=== PATIENT | female | born 1985 | race Caucasian/White ===

== ENCOUNTER 2024-02-29 16:11 | Outpatient (REF) | payer OTHER, SELFPAY | END 2024-02-29 16:12 | disposition home or self-care (01) | LOC: LBN 16:11 | PROVIDERS: PCP Nurse Practitioner Family; Visit Provider Obstetrics & Gynecology | DX: N89.8 Other specified noninflammatory disorders of vagina (principal) | CPT/HCPCS: 87480; 87510; 87660 ==

== ENCOUNTER 2024-06-10 00:34 | Outpatient (CLI) | payer OTHER, SELFPAY ==
[2024-06-10 16:52] LABS: HCT 43.9 % (36.0-46.0); HGB 14.7 g/dL (11.2-15.7)
== END 2024-06-10 00:35 | disposition home or self-care (01) ==
LOC: LBO 00:34
PROVIDERS: PCP Nurse Practitioner Family; Visit Provider Obstetrics & Gynecology
DX: Z01.818 Encounter for other preprocedural examination (principal)
CPT/HCPCS: 36415; 86850; 86900; 86901; 85014; 85018

== ENCOUNTER 2024-06-12 06:00 | Inpatient (IN) | payer OTHER, SELFPAY ==
[2024-06-12] VITALS (34 sets, daily range): BP systolic 84–118; BP diastolic 38–78; PULSE 47–74; RESP 11–18; TEMP 36–37.2; O2SAT 96–100; BMI 26.9
[2024-06-12] MEDS: Lactated Ringers 1,000 ML 125 ML IV ×2 (06:51→10:51)
--- NOTE | 2024-06-12 07:21 | W.ANESPRE ---
General Info Date of Service Date Performed: 06/12/24 Height: 5 ft 3.5 in Weight: 69.9 kg Body Mass Index (BMI): 26.9 Surgical Procedure: Operation Date: 06/12/24 07:40 Proposed Procedure Side Surgeon p Hysterectomy Total Abdominal, bilateral salpingectomy Karen Henson MD Meds Allergies and Home Medications Allergies Allergy/AdvReac Type Severity Reaction Status Date / Time amoxicillin Allergy Other (See Verified 06/12/24 06:18 Comment) gluten Allergy bloating, Verified 06/12/24 06:18 swelling acetaminophen (From Percocet) AdvReac Severe Other (See Verified 06/12/24 06:18 Comment) oxycodone (From Percocet) AdvReac Severe Other (See Verified 06/12/24 06:18 Comment) Home Medication ?Medication ?Instructions ?Recorded ascorbate calcium (vitamin C) 500 500 mg PO DAILY 02/29/24 mg tablet ascorbic acid 7.5 mg-vit E 7.5 1 tab PO DAILY 02/29/24 unit-biotin 1,250 mcg chewable tablet (Hair,Skin,Nails with Biotin) magnesium oxide 500 mg capsule 500 mg PO DAILY 02/29/24 vitamin B complex 1 tab PO DAILY 02/29/24 vitamin D3 25 mcg (1,000 unit)-vit 1 tab PO DAILY 02/29/24 K2 90 mcg disintegrating tablet Current Visit Medications: Current Medications Generic Name Dose Route Start Last Admin Trade Name Freq PRN Reason Stop Dose Admin Ringer's Solution 1,000 mls @ 125 mls/hr 06/12/24 06:00 06/12/24 06:51 IV 06/12/24 23:59 125 mls/hr INFUSION JERRI Administration Cefazolin Sodium/Dextrose 2 gm in 50 mls @ 100 mls/hr 06/12/24 06:00 Ancef Duplex IVPB 06/12/24 23:59 PREOP JERRI IV Miscellaneous Supplies 1 each 06/12/24 06:00 Iv Access IV 06/12/24 23:59 DIRECTED JERRI Sodium Chloride 0 ml 06/12/24 06:00 Normal Saline Flush 10 Ml Syr IV 06/12/24 23:59 PRN PRN Sodium Chloride 0 ml 06/12/24 06:00 Normal Saline 10 Ml Vial IJ 06/12/24 23:59 DIRECTED PRN Sterile Water 0 ml 06/12/24 06:00 Water,Injection,Sterile 10 Ml Vial IJ 06/12/24 23:59 DIRECTED PRN PFSH Active Problems Active Problems: Problem Status Onset Code Uterine fibroid Acute D25.9 Medical History Medical History Hx of syncope Family history of diabetes mellitus type II PTSD (post-traumatic stress disorder) Pt.states no potential triggers Rhinitis Onychomycosis Congenital pes planus of both feet Plantar fasciitis Macromastia Back pain Halitosis Dry eyes Xerostomia Postnasal drip Surgical History Surgical History Hx of foot surgery Hx of cholecystectomy Hx of tonsillectomy H/O section Tobacco Smoking/Tobacco Use Status: Former Tobacco Use Passive smoking exposure: No Second hand exposure: No Alcohol Alcohol Intake: former Substance Use Substance use: Never Substance use type: does not use Prental History History 1 Para 1 Hx # Term Pregnancies Multiple births Hx # Pregnancies Ectopic pregnancies AB induced Hx Number of Living Children AB spontaneous Past Pregnancies Del. Date GA/Weeks # Preg Succ Route Wgt Sex Labor Lgth Anesthesia Location [facility] 07/12/06 Yes Male [facility] [place] Delivery Date: 07/12/06 Last Updated by: KEISHA Sequeira Vital Signs and Lab Results Vital Signs Most Recent Vital Signs in EMR: Most Recent Vital Signs Temp Pulse Resp BP Pulse Ox 36 C L 60 16 118/78 98 06/12/24 06:04 06/12/24 06:04 06/12/24 06:04 06/12/24 06:04 06/12/24 06:04 Point of Care Results Point of Care Results: POC- Test(urine) Negative 06/12/24 06:53 Lab Results Blood Type / Crossmatch: Antibody Screen NEGATIVE 06/10/24 Complete Blood Count: Hemoglobin 14.7 g/dL (11.2-15.7) 06/10/24 16:42 Hematocrit 43.9 % (36.0-46.0) 06/10/24 16:42 Complete Metabolic Panel: No Data to Display Liver Function Panel: No Data to Display Coagulation Panel: No Data to Display Cardiac Panel: No Data to Display Arterial Blood Gas: No Data to Display Venous Blood Gas: No Data to Display Pancreas Panel: No Data to Display Thyroid Panel: No Data to Display Infectious Disease: No Data to Display Blood Cultures: No Data to Display Toxicology Panel: No Data to Display Panel: No Data to Display Anesthesia Assessment and Plan Anesthesia History Personal History: No History of Anesthesia Complications Family History: No Family History of Anesthesia Complications Exercise Tolerance Exercise Tolerance: Metabolic Equivalents>4 Pertinent Negatives Pertinent Negatives: No Symptoms of GERD and No Major Cardiovascular Symptoms or Complaints Cardiac & Pulmonary Exam Cardiac Exam: Normal S1/S2 Heart Sounds Pulmonary Exam: Clear Bilateral Breath Sounds Implantable Cardiac Device Does patient have a Pacemaker or an ICD?: No Airway Exam Known Difficult Airway: No Mallampati Class: 1 Mouth Opening: Normal (> 3cm) Thyromental Distance: Greater than 3 cm Neck Range of Motion: Full ROM Neck Circumference: Normal Teeth Condition: Normal Dentition ASA Classification ASA Score: ASA 2 Emergency Case?: No NPO Status NPO Status: NPO Clears >2 hours, Solids >8 hours Status Status: Negative HCG Anesthesia Plan Resuscitation Status: Full Code Anesthesia Technique: General Anesthesia Airway Planned: Endotracheal Tube Pain Management: Surgeon and patient request nerve block Monitors Used: Standard Monitors and SedLine
[2024-06-12] MEDS: ceFAZolin 2 GM/50 ML BAG IVPB (08:09)
--- NOTE | 2024-06-12 08:35 | UTER_PTH ---
PATIENT: Elo Martinez LOC: OBS U#:[id number] AGE/SX: 39/F ROOM: OBS.306 RE06/12/[address]: Karen Henson MD : 1985 BED: A DIS: 06/14/2024 SPEC #: [id number] RECD: 06/12/24 11:52 STATUS: JACEY REQ #: [id number] OLIVIA: 06/12/24 08:[address]: Karen Henson DEPT: Surgical Specimen RECD BY: Sandi Perez ENTERED: 06/12/24 11:54 SP TYPE: UTER OTHR DR: Elodia Ndiaye Tissues: 1 - UTERUS W OR W/O OVARIES(NOT TUMOR/PROLAPSE) Procedures: GROSS AND MICRO LEVEL 5 Comments: [id number]
[2024-06-12] MEDS: Bupivacaine 0.25% Pres-Free 30 ML VIAL (09:07)
--- NOTE | 2024-06-12 09:09 | ANES.NERVE_ITS ---
Nerve Block Single Injection Procedure Date and Time Date Performed: 06/12/24 Procedure Start: 07:53 Location Where Procedure Performed Procedure Location: Operating Room Procedure Stop: 08:06 Reason Performed: Postoperative Analgesia Requesting Provider: Karen Henson Timeout Performed Timeout Performed: Yes Monitoring Used ECG, Blood Pressure, SpO2 and See EMR for corresponding vital signs Sterility Sterility: Hand Hygiene, Surgical Cap, Surgical Mask, Sterile Gloves and Chl orhexidine Sedation Given During Procedure Sedation Given (Indicate Dose Given): No Sedation given Patient Mental Status Patient Mental Status: Performed under general anesthesia Nerve Block 1st Nerve Block: Laterality: Bilateral Block Type: TAP Bilateral Ultrasound Image Saved?: Yes Needle / Catheter Used: 100mm SonoPlex II Local Anesthetic Bolus (Indicate Dose Given): None, Injected in 3-5ml increments after negative blood aspiration, Half of Total block solution given into each side, Bupivacaine 0.25% Dose:: 30mL and Exparel Dose:: 20mL Additives (Indicate Dose Given): None Ultrasound: Sterile probe cover and gel used Nerve Stimulator: Not Used Paresthesia: None Procedure Tolerated: No Complications Procedure Outcome: Successful Procedure Comment: Delia Dozier CRNA Performed By: Lupe Crenshaw
[2024-06-12] MEDS: fentaNYL 100 MCG/2 ML VIAL IVP ×4 (10:48→11:33)
[2024-06-12] MEDS: ePHEDrine 25 MG/5 ML Syringe IVP (10:59)
--- NOTE | 2024-06-12 11:12 | W.PM.OP ---
Operative Note Operative Note PRE-OP DIAGNOSIS: Fibroid uterus, menorrhagia Endometriosis PROCEDURE: Total abdominal hysterectomy, bilateral salpingectomy SURGEON: Karen Henson ASSISTING SURGEON: Brunilda Farooq Refer to Anesthesia Record ESTIMATED BLOOD LOSS: 200 PATHOLOGY: other (Uterus, cervix, bilateral tubes; piece of cervix) COMPLICATIONS: None Patient was transported to: PACU Patient's condition: stable Indications: Pt has been experiencing very heavy periods and had an ultrasound that showed a markedly enlarged fibroid uterus, measuring [id number]. She opted for definitive treatment via hysterectomy due to bulk symptoms as well. Findings: Enlarged fibroid uterus with multiple exophytic and subserosal fibroids. The right ovary appeared normal. The left ovary had one area of suspected endometriosis on it. The tubes appeared normal. There was minor adhesion of the bladder to the uterus. No other significant findings. Procedure Description: After informed consent was signed the patient was taken to the operating room. She was given general anesthesia and TAP blocks. SCDs were placed on her legs and a heart catheter was introduced into her bladder. Exam under anesthesia revealed an enlarged 20wk size uterus with multiple palpable fibroids. She underwent abdominal and vaginal prep and was draped in the dorsal supine position. The patient was tested and spinal anesthesia was found to be adequate. She was given pre-op abx and TXA. A time out was performed. The skin was injected with bupivocaine along the length of the planned incision. A skin incision was made with the scalpel and carried down to the underlying layer of fascia with a combination of sharp and blunt dissection. The fascia was incised on either side of the midline and the fascial incision extended laterally with a combination of sharp and blunt dissection. The inferior edge of the fascia was grasped with nicolas clamps and tented up and dissected down with blunt dissection. Then the superior edge of the fascial incision was grasped with nicolas clamps and tented up and dissected down with blunt dissection. The rectus muscles were in the midline and the peritoneum was entered bluntly. The peritoneal incision was extended laterally with sharp and blunt dissection. The uterus was identified and exteriorized. The right tube was identified and followed to the fibriated end. The mesosalpinx was clamped, cauterized and cut to the cornua. This was repeated on the left side. The right utero-ovarian ligament was identified and grasped with the handheld ligasure device, then clamped, cauterized and cut. The same was repeated on the left side. Both round ligaments were identified, clamped, cauterized and cut. There was significant blood supply to the uterus so careful dissection via cautery was continued along the anterior and posterior leaf of the broad ligament. The bladder was adhesed to the anterior uterus. This was carefully dissected down with sharp dissection until the bladder flap was created and the bladder was moved away from the uterine ligaments. The uterine vessels were identified, then clamped and cauterized x2 and cut proximally. Attention was turned to the left side where the uterine vessels were clamped, cut and suture ligated. The cardinal ligaments were clamped, cauterized and cut or suture ligated bilaterally. Then the uterosacral ligaments were clamped, cut with sharp dissection and cauterized or suture ligated bilaterally. Dissection continued along the length of the cervix. Curved clamps were used to clamp the vaginal tissue under the cervix. The uterus was removed with sharp dissection into the vagina. The vaginal cuff was closed with several 0-vicryl [id number] sutures taking care to incorporate both corners and the peritoneum. Good hemostasis was noted. All the pedicles were inspected for good hemostasis. The rectus muscles were inspected and some bleeding was noted from the left rectus muscle. This was grasped with smooth forceps and cauterized with resulting good hemostasis. The fascia was closed with 0-vicryl in a running unlocked fashion. The subcuticular layer was irrigated and closed with interrupted sutures of 3-0 vicryl. The skin was closed with 4-0 vicryl in a running subcuticular fashion. The incision was cleaned. Mastisol and steristrips were placed. A dressing was placed. The patient was moved to the stretcher and taken to the recovery room in stable condition. Date of Procedure: 06/12/24
--- NOTE | 2024-06-12 11:15 | W.ANESPOSTOP ---
Postoperative Evaluation Date, Time and Location Date Performed: 06/12/24 Time Performed: 11:15 Patient Location: PACU Vital Signs Most Recent Imported Vital Signs: Most Recent Vital Signs Temp Pulse Resp BP Pulse Ox 36.8 C 57 L 13 101/50 L 99 06/12/24 11:05 06/12/24 11:00 06/12/24 11:00 06/12/24 11:00 06/12/24 11:00 Pain Score Most Recent Pain Score: Most Recent Pain Score Pain Level 5 06/12/24 11:05 Assessment Mental Status: Arousable with meaningful communication Airway and Respiratory Function: Patent airway with normal (patient baseline) respiratory exam Cardiovascular Function: Hemodynamically Stable Hydration Status: Adequately Hydrated Nausea & Vomiting: No Nausea or Vomiting Pain: Pain is tolerable per patient Peripheral Nerve Block: Regional nerve block not resolved at time of post operative discharge
[2024-06-12] MEDS: MORPHine 2 MG/ML SYR IV (12:50)
[2024-06-12] MEDS: oxyCODONE 5 MG TAB PO ×2 (13:22→19:43)
[2024-06-12] MEDS: Simethicone 80 MG CHEW PO ×2 (13:22→18:11)
[2024-06-12] MEDS: Acetaminophen 500 MG TAB 1000 MG PO (15:14)
[2024-06-12] MEDS: Ketorolac 30 MG/ML VIAL IVP ×2 (17:20→22:49)
[2024-06-12] MEDS: Normal Saline Flush 10 ML SYR IV ×2 (17:21→22:50)
--- NOTE | 2024-06-12 17:46 | W.PM.PROGNOT ---
Date of Service Date of service: 06/12/24 Time of Service: 17:30 Assessment and Plan Assessment and plan (1) History of abdominal hysterectomy: Assessment and plan: POD#0 s/p AUDRA-BS this am for an enlarged fibroid uterus. Pt's pain is adequately controlled now. She is tolerating oral intake and ambulating. Anticipate D/C home later in the day tomorrow. Subjective Subjective Interval history since last seen: Pt is feeling better. Has been able to ambulate and tolerate fluids. +void. Pain currently mild. Exam Const General: cooperative, healthy appearing and comfortable GI Other: abdomen: soft, mildly tender Dressing clean and dry. Other: No obvious bleeding Extrem Other: SCDs in place. No calf tenderness Objective Last Vital Signs Temp 98.1 F 06/12/24 17:25 Pulse 63 06/12/24 17:25 Resp 16 06/12/24 17:25 BP 101/62 06/12/24 17:25 Pulse Ox 98 06/12/24 17:25 Time Spent with Patient Time Spent with Patient: <25 minutes Time was spent: obtaining and/or reviewing separately otained hiistory, ordering medications,tests, procedures and counseling the patient
[2024-06-12] MEDS: Docusate Sodium 100 MG CAP PO (22:50)
[2024-06-13] MEDS: Acetaminophen 500 MG TAB 1000 MG PO ×3 (02:08→21:50)
[2024-06-13] MEDS: Simethicone 80 MG CHEW PO ×4 (02:09→21:50)
[2024-06-13 05:00] VITALS: BP 100/54; PULSE 66; RESP 17; TEMP 36.5; O2SAT 97
[2024-06-13] MEDS: Normal Saline Flush 10 ML SYR (05:00)
[2024-06-13] MEDS: Ketorolac 30 MG/ML VIAL IVP (05:01)
[2024-06-13] MEDS: Normal Saline Flush 10 ML SYR IV (05:02)
[2024-06-13 06:37] LABS: HCT 36.5 % (36.0-46.0); HGB 12.4 g/dL (11.2-15.7); MCH 31.6 pg (27.0-33.0); MCV 93 fL (80-95); MPV 10.9 fL (8.0-11.0); Platelet Count 242 10^3/uL (130-400); RBC 3.92 10^6/uL (3.93-5.22); RDW 11.9 % (11.7-14.6); RDW-SD 40.2 fL
[2024-06-13] MEDS: Docusate Sodium 100 MG CAP PO ×2 (08:19→21:50)
[2024-06-13] MEDS: Magnesium Oxide 400 MG TAB PO (08:19)
[2024-06-13] MEDS: Ascorbic Acid 500 MG TAB PO (08:20)
[2024-06-13] MEDS: Cholecalciferol (Vitamin D3) 1,000 UNIT TAB 1000 UNITS PO (08:21)
[2024-06-13] MEDS: Vitamins B Comp w/C TAB 1 TAB PO (08:22)
[2024-06-13] MEDS: oxyCODONE 5 MG TAB PO ×2 (08:23→17:44)
[2024-06-13 08:29] VITALS: BP 92/70; PULSE 66; RESP 12; TEMP 36.9
[2024-06-13] MEDS: Ibuprofen 600 MG TAB PO ×2 (11:50→17:44)
[2024-06-13 11:51] VITALS: BP 90/61; PULSE 70; RESP 16; TEMP 36.8; O2SAT 95
[2024-06-13 13:08] VITALS: BP 102/70; PULSE 72; RESP 12; TEMP 37.1
--- NOTE | 2024-06-13 14:17 | DSE_ITS ---
Date of service: 06/13/24 Time of Service: 14:26 Discharge Plan Disposition Patient Disposition: Home Condition: Good Discharge Details Reason For Visit: S/P total ab hysterectomy w/bilateral salpingectom Admit Date/Time: 06/12/24 06:00 Admit Provider: Karen Henson Attending Provider: Karen Henson Primary Care Provider: Elodia Ndiaye Hospital Course Hospital Course: Pt admitted and underwent AUDRA-BS without complication. She had a routine post- op recovery. On POD#2 her pain is well controlled on PO meds, she is tolerating PO intake, passing gas and urinating without issue. Home Meds and New Rx's Prescriptions: New acetaminophen 500 mg Tablet 1,000 mg PO Q6H PRN PRNQty: 60 0RF docusate sodium [Colace] 100 mg Capsule 100 mg PO BID Qty: 30 0RF ibuprofen 600 mg Tablet 600 mg PO Q6H PRN PRNQty: 60 0RF simethicone 80 mg Tablet,Chewable 80 mg PO PC & HS Qty: 30 0RF oxycodone 5 mg Tablet 5 mg PO Q6H PRN PRNQty: 8 0RF Continued ascorbate calcium (vitamin C) 500 mg tablet 500 mg PO DAILY vitamin B complex Tablet 1 tab PO DAILY magnesium oxide 500 mg capsule 500 mg PO DAILY vitamin D3-vitamin K2 25 mcg (1,000 unit)-90 mcg tablet,disintegrating 1 tab PO DAILY Hair, Skin, Nails with Biotin 7.5-7.5-1,250 mg-unit-mcg tablet,chewable 1 tab PO DAILY Discharge Instructions Activity:: No lifting >20lbs Equipment/Supplies:: No Equipment Needed Diet:: As Tolerated Discharge Orders Discharge Orders: Discharge Order (Routine); Ordered 06/13/24 Ordered By: Karen Henson DS: Summary Time Spent with Patient providing and/or coordinating discharge services: Less than 30 minutes Status at Discharge Functional status at discharge: independent ambulation Overall status at discharge: patient is back to baseline Mental Status: mental status grossly normal Speech and Movement: speech and movement normal Mood: congruent mood Affect: normal affect Quality:SDOH Health Related Social Needs: No Data to Display Exam Psych Mental Status: mental status grossly normal Speech and Movement: speech and movement normal Mood: congruent mood Affect: normal affect DS: Data Vitals/I&O Vitals and I&O: Vital Signs Temperature 98.8 F 06/13/24 13:08 Temperature Source Oral 06/13/24 13:08 Pulse 72 06/13/24 13:08 Pulse Rhythm Regular 06/12/24 06:04 Pulse 58 L 06/12/24 11:21 Respiratory Rate 12 06/13/24 13:08 Respiratory Depth Normal 06/12/24 06:04 Blood Pressure 102/70 06/13/24 13:08 Blood Pressure Mean 80 06/13/24 13:08 Pulse Oximetry 95 06/13/24 11:51 Respiratory End-tidal CO2 36 06/12/24 11:20 Oxygen Delivery Method Room Air 06/13/24 13:08 Oxygen Flow Rate 0 06/13/24 13:08 Pain Level 5 06/13/24 11:51 Intake & Output 06/12/24 06/13/24 06/13/24 23:59 11:59 23:59 Intake Total 610.417 / 1912.500 Output Total 950 / 1500 Balance -339.583 / 412.500 Intake: IV 610.417 / 1912.500 Output: Urine 950 / 1300 Data Completed and Pending Labs on day of discharge: Labs from last 24 hours 06/13/24 06:04: WBC 12.10 H, RBC 3.92 L, Hgb 12.4 D, Hct 36.5, MCV 93, MCH 31.6, MCHC 34.0, RDW 11.9, Plt Count 242, MPV 10.9 PFSH All Active Problems Uterine fibroid (Acute) Medical History Hx of syncope Family history of diabetes mellitus type II PTSD (post-traumatic stress disorder) Pt.states no potential triggers Rhinitis Onychomycosis Congenital pes planus of both feet Plantar fasciitis Macromastia Back pain Halitosis Dry eyes Xerostomia Postnasal drip Surgical History (Updated 06/12/24 @ 17:48 by Karen Henson MD) History of abdominal hysterectomy AUDRA-BS: 06/12/24: Dr. Henson Enlarged fibroid uterus, menorrhagia, e/o endometriosis on left ovary. Hx of foot surgery Hx of cholecystectomy Hx of tonsillectomy H/O section Family History (Updated 02/29/24 @ 16:00 by Radha Roberts RN) Father Diabetes Paternal Grandmother Diabetes Melanoma Paternal Grandfather Diabetes Depression Melanoma Maternal Grandmother Colon cancer Uterine cancer Other Hyperlipidemia Hypertension Stroke Social History Smoking/Tobacco Use Status: Former Tobacco Use Quit Date: 02/13/03 Tobacco: How many years used: 2 Second Hand Exposure: No Smoking risk assessment performed?: Yes Alcohol Intake: former Drug use: Never Substance use type: does not use Housing: house What type of physical activity do you participate in: walking Duration: 45-60 minutes/day Frequency: 3-4 times per week Seatbelt use: always Helmet use: Yes Working smoke detector in home: Yes Firearms in home: No Do you feel safe at home: Yes Do you feel safe in your relationship?: Yes Female Reproductive History Menstrual Age of Menarche: 13 Duration of menses: 3-5 days control method: none History History 1 Para 1 Hx # Term Pregnancies Multiple births Hx # Pregnancies Ectopic pregnancies AB induced Hx Number of Living Children AB spontaneous Past Pregnancies Del. Date GA/Weeks # Preg Succ Route Wgt Sex Labor Lgth Anesth esia Location Prov Complic 07/12/06 Yes Male [place] Delivery Date: 07/12/06 Last Updated by: KEISHA Sequeira Time Spent with Patient Time Spent with Patient: <45 minutes Time was spent: obtaining and/or reviewing separately otained hiistory and counseling the patient
[2024-06-13 19:15] VITALS: BP 101/69; PULSE 73; RESP 16; TEMP 36.9; O2SAT 97
[2024-06-14] VITALS: BP 109/62; PULSE 60; RESP 16; TEMP 36.6; O2SAT 100
[2024-06-14] MEDS: oxyCODONE 5 MG TAB PO ×3 (00:04→11:52)
[2024-06-14] MEDS: Ibuprofen 600 MG TAB PO ×3 (00:04→11:53)
[2024-06-14 04:00] VITALS: BP 99/74; PULSE 63; RESP 16; TEMP 36.7; O2SAT 98
[2024-06-14] MEDS: Acetaminophen 500 MG TAB 1000 MG PO (04:20)
[2024-06-14 08:30] VITALS: BP 100/69; PULSE 57; RESP 12; TEMP 36.7; O2SAT 99
[2024-06-14] MEDS: Vitamins B Comp w/C TAB 1 TAB PO (08:40)
[2024-06-14] MEDS: Simethicone 80 MG CHEW PO (08:40)
[2024-06-14] MEDS: Ascorbic Acid 500 MG TAB PO (08:40)
[2024-06-14] MEDS: Cholecalciferol (Vitamin D3) 1,000 UNIT TAB 1000 UNITS PO (08:41)
[2024-06-14] MEDS: Magnesium Oxide 400 MG TAB PO (08:41)
[2024-06-14] MEDS: Docusate Sodium 100 MG CAP PO (08:41)
--- NOTE | 2024-06-14 09:01 | W.PM.PROGNOT ---
Date of Service Date of service: 06/13/24 Time of Service: 16:00 Assessment and Plan Assessment and plan (1) History of abdominal hysterectomy: Assessment and plan: POD#1 s/p AUDRA-BS, doing well. Pt decided to stay 1 more night and anticipates d/c home tomorrow. Subjective Subjective Interval history since last seen: Pt feeling well overall though she developed a bit of a headache earlier and had a slightly low BP at that time. She has been hydrating well and has ambulated without difficulty. She is tolerating PO and has a decent appetite again. Very minimal bleeding. Pain well controlled on PO meds. Exam Const General: cooperative, healthy appearing and no acute distress HENMT Head: normocephalic and atraumatic Ears: hearing grossly normal bilaterally Resp Effort & Inspection: normal respiratory effort and able to speak in complete sentences GI Other: Incision: clean, dry and intact. Some steristrips replaced. Mildly tender to palpation. Neuro General: patient alert and patient awake Psych Appearance: grossly normal Mental Status: mental status grossly normal Speech and Movement: speech and movement normal Affect: normal affect Attitude: cooperative Thought Process: normal Thought Content: normal Objective Last Vital Signs Temp 98.1 F 06/14/24 04:00 Pulse 63 06/14/24 04:00 Resp 16 06/14/24 04:00 BP 99/74 L 06/14/24 04:00 Pulse Ox 98 06/14/24 04:00 Time Spent with Patient Time Spent with Patient: 25-34 minutes Time was spent: obtaining and/or reviewing separately otained hiistory, ordering medications,tests, procedures and counseling the patient
== END 2024-06-14 12:45 | disposition home or self-care (01) | DRG 743 ==
LOC: PDS 06:02 → OBS 12:03
PROVIDERS: Obstetrics & Gynecology; Admitting Provider Obstetrics & Gynecology; PCP Nurse Practitioner Family; Visit Provider Obstetrics & Gynecology
PROC: 0UT90ZZ Resection of Uterus, Open Approach (ICD-10-PCS; CPT 58150; principal; 2024-06-12 07:30)
DX: D25.9 Leiomyoma of uterus, unspecified (principal); N92.0 Excessive and frequent menstruation with regular cycle; G89.18 Other acute postprocedural pain; R10.2 Pelvic and perineal pain; F43.10 Post-traumatic stress disorder, unspecified; K11.7 Disturbances of salivary secretion; N62 Hypertrophy of breast; B35.1 Tinea unguium; Z83.3 Family history of diabetes mellitus; M72.2 Plantar fascial fibromatosis; R19.6 Halitosis; Z80.0 Family history of malignant neoplasm of digestive organs; E78.5 Hyperlipidemia, unspecified; I10 Essential (primary) hypertension; Z79.899 Other long term (current) drug therapy
CPT/HCPCS: 58150; 36415; 64488; 85027; 88307; G0378; J0131; J0665; J0666; J0690; J1100; J1885; J2003; J2250; J2270; J2405; J2704; J3010; J3490

== ENCOUNTER 2024-06-21 21:03 | Outpatient (REF) | payer OTHER, SELFPAY | END 2024-06-21 21:04 | disposition home or self-care (01) | LOC: LBN 21:03 | PROVIDERS: PCP Nurse Practitioner Family; Visit Provider Obstetrics & Gynecology | DX: R30.0 Dysuria (principal) | CPT/HCPCS: 87086 ==

== ENCOUNTER 2024-07-03 10:02 | Outpatient (REF) | payer OTHER, SELFPAY | END 2024-07-03 10:03 | disposition home or self-care (01) | LOC: LBN 10:02 | PROVIDERS: PCP Nurse Practitioner Family; Visit Provider Obstetrics & Gynecology | DX: N94.9 Unspecified condition associated with female genital organs and menstrual cycle (principal); Z90.710 Acquired absence of both cervix and uterus; R30.0 Dysuria | CPT/HCPCS: 87480; 87510; 87660 ==